=== PATIENT | male | born 1990 | race Caucasian/White ===

== ENCOUNTER 2019-09-26 09:52 | Observation (INO) | payer BC, OTHER ==
[~2019-09-26] VITALS: Ht 190.5 cm; Wt 122.0 kg
[2019-09-26] MEDS: CEFAZOLIN PMX 1GM/50ML 50 ML IV SCH ×2 (01:30→09:30)
[~2019-09-26 09:52] MED LIST: GABAPENTIN 300 MG CAPSULE ONE
[2019-09-26] MEDS ORDERED: HYDROmorphone 1 MG/ML, 1ML INJ ONE (10:20)
[2019-09-26] MEDS: HYDROmorphone 1 MG/ML, 1ML INJ IVPush PRN ×2 (10:22→10:49)
[2019-09-26] MEDS ORDERED: ADENOSINE 6 MG/2 ML ONE (10:24)
[2019-09-26] MEDS ORDERED: DILTIAZEM 5 MG/ML, 5ML ONE (10:25)
[2019-09-26] MEDS ORDERED: D5%-0.45NACL+KCL 20MEQ 1,000 ML IV ONE (10:27)
[2019-09-26] MEDS ORDERED: HYDROmorphone 1 MG/ML, 1ML INJ IVPush PRN (10:30)
[2019-09-26] MEDS ORDERED: SODIUM CHLORIDE FLUSH 10ML SYR IVF PRN (10:30)
[2019-09-26] MEDS ORDERED: ONDANSETRON 2MG/ML, 2ML IVPush PRN (10:30)
[2019-09-26] MEDS ORDERED: ONDANSETRON 2MG/ML, 2ML ONE ×2 (10:42→17:20)
--- NOTE | 2019-09-26 11:14 | NUR ---
Report to Jenelle mckinley
[2019-09-26] MEDS ORDERED: HYDROmorphone 2 MG/ML, 1ML ONE (15:36)
[2019-09-26] MEDS: HYDROmorphone 2 MG/ML, 1ML IVPush PRN ×2 (15:44→20:11)
[2019-09-26] MEDS ORDERED: BUPIVACAINE/PF 0.5% ONE (16:12)
[2019-09-26] MEDS ORDERED: ACETAMINOPHEN 325 MG TABLET ONE (16:20)
[2019-09-26] MEDS ORDERED: GABAPENTIN 300 MG CAPSULE ONE (16:22)
[2019-09-26] MEDS ORDERED: MIDAZOLAM 1 MG/ML, 2ML ONE (16:28)
[2019-09-26] MEDS ORDERED: FENTANYL PF 250 MCG/5ML ONE (16:31)
[2019-09-26] MEDS ORDERED: LABETALOL 5MG/ML, 20ML IV PRN (17:00)
[2019-09-26] MEDS ORDERED: ALBUTEROL SULFATE 2.5 MG/3 ML NPPB PRN (17:00)
[2019-09-26] MEDS ORDERED: OXYcodone 5 MG/5 ML ORAL.SOL UDC PO PRN ×2 (17:00→19:00)
[2019-09-26] MEDS ORDERED: MEPERIDINE/PF 25MG/0.5ML IVPush PRN (17:00)
[2019-09-26] MEDS ORDERED: DIAZEPAM 5 MG/ML, 2ML IVPush PRN (17:00)
[2019-09-26] MEDS ORDERED: hydrALAzine 20 MG/ML, 1ML IV PRN (17:00)
[2019-09-26] MEDS ORDERED: FENTANYL PF 100 MCG/2ML IV PRN (17:00)
[2019-09-26] MEDS ORDERED: HYDROmorphone 2 MG/ML, 1ML IVPush PRN (17:00)
[2019-09-26] MEDS ORDERED: PROMETHAZINE 25 MG/ML, 1ML IV PRN (17:00)
[2019-09-26] MEDS ORDERED: ACETAMINOPHEN 325 MG TABLET PO PRN (17:00)
[2019-09-26] MEDS ORDERED: BUPIVACAINE/PF 0.5% INFIL ONE (17:08)
[2019-09-26] MEDS ORDERED: MEPERIDINE/PF 50 MG/ML ONE (17:18)
[2019-09-26] MEDS ORDERED: PROPOFOL 10 MG/ML, 20ML ONE (17:20)
[2019-09-26] MEDS ORDERED: ROCURONIUM 10MG/ML,5ML ONE (17:20)
[2019-09-26] MEDS ORDERED: GLYCOPYRROLATE 0.2MG/1ML, 5ML ONE (17:20)
[2019-09-26] MEDS ORDERED: NEOSTIGMINE 1 MG/ML, 10ML ONE (17:20)
[2019-09-26] MEDS ORDERED: SUCCINYLCHOLINE 20 MG/ML, 10ML ONE (17:20)
[2019-09-26] MEDS ORDERED: CEFAZOLIN 1,000 MG ONE (17:20)
[2019-09-26] MEDS ORDERED: DEXAMETHASONE 4 MG/ML, 1ML ONE (17:20)
[2019-09-26] MEDS ORDERED: OXYcodone 5 MG/5 ML ORAL.SOL UDC ONE (18:26)
[2019-09-26 20:00] VITALS: BP 128/71
[2019-09-27 00:15] VITALS: BP 113/71
[2019-09-27] MEDS: CEFAZOLIN PMX 1GM/50ML 50 ML IV SCH ×2 (01:51→09:30)
[2019-09-27] MEDS: OXYcodone IR 5MG TABLET PO PRN ×3 (02:01→11:01)
[2019-09-27] MEDS: HYDROmorphone 2 MG/ML, 1ML IVPush PRN ×2 (03:18→07:49)
[2019-09-27 07:54] VITALS: BP 146/84
[2019-09-27] MEDS ORDERED: CEFAZOLIN PMX 1GM/50ML 50 ML IV SCH (11:00)
[2019-09-27] MEDS ORDERED: IBUP-1223 PO (11:18)
[2019-09-27] MEDS ORDERED: OXYC5TAB2 PO (11:19)
== END 2019-09-27 12:10 | disposition home or self-care (01) ==
LOC: ED 10:45 → INTOOBSV 10:57 → EDIP 10:57 → 4NE 11:40
PROVIDERS: ADMIT Orthopaedic Surgery; ATTEND Orthopaedic Surgery
DX: S52.511B Displaced fracture of right radial styloid process, initial encounter for open fracture type I or II (principal); S63.044A Dislocation of carpometacarpal joint of right thumb, initial encounter; S62.101B Fracture of unspecified carpal bone, right wrist, initial encounter for open fracture; W37.8XXA Explosion and rupture of other pressurized tire, pipe or hose, initial encounter; Y93.89 Activity, other specified; Y92.89 Other specified places as the place of occurrence of the external cause
CPT/HCPCS: 12002; 25624; 25645; 73100; 73110; 73200; 76000; 96365; 96366; 96375; 96376; 99285; C1713; G0378; J0330; J0690; J1100; J1170; J2175; J2250; J2405; J2704; J3010; J3480; S0020; J2710